=== PATIENT | female | born 1995 | race Caucasian/White ===

== ENCOUNTER 2022-09-23 20:17 | Emergency (ER) | payer BC ==
[2022-09-23] MEDS ORDERED: Ketorolac 60 MG/2 ML SDV IM ONE (21:13)
== END 2022-09-23 23:20 | disposition home or self-care (01) ==
LOC: JD.ED 20:17
DX: S83.91XA Sprain of unspecified site of right knee, initial encounter (principal); W09.8XXA Fall on or from other playground equipment, initial encounter; Y93.44 Activity, trampolining
CPT/HCPCS: 73562; 96372; 99283; J1885

== ENCOUNTER 2022-10-12 14:59 | Emergency (ER) | payer BC ==
[2022-10-12] MEDS ORDERED: Iopamidol 755 Mg/ML 100 ML Bottle IVPUSH ONE (15:34)
[2022-10-12] MEDS ORDERED: Sodium Chloride 0.9% 10 ML Syringe FLUSH ONE (15:34)
[2022-10-12 15:38] LABS: BASOPHILS ABSOLUTE AUTO 0.01 K/mm3 (0.01-0.08); BASOPHILS PERCENT AUTO 0.2 % (0.1-1.2); EOSINOPHILS ABSOLUTE AUTO 0.03 K/mm3 (0.04-0.36); EOSINOPHILS PERCENT AUTO 0.5 (0.7-5.8); HEMATOCRIT 32.7 % (34.1-44.9); HEMOGLOBIN 10.5 gm/dl (11.2-15.7); IMMATURE GRAN ABSOLUTE AUTO 0.01 K/mm3 (0.00-0.10); IMMATURE GRAN PERCENT AUTO 0.2 % (<=1.0); LYMPHOCYTES ABSOLUTE AUTO 1.74 K/mm3 (1.18-3.74); MEAN CORPUSCULAR HEMOGLOBIN 19.4 pg (25.6-32.2); MEAN CORPUSCULAR HGB CONC 32.1 g/dl (32.2-35.5); MEAN CORPUSCULAR VOLUME 60.3 fl (79.4-94.8); MONOCYTES ABSOLUTE AUTO 0.45 K/mm3 (0.24-0.36); NEUTROPHILS ABSOLUTE AUTO 3.38 K/mm3 (1.56-6.13); NEUTROPHILS PERCENT AUTO 60.1 % (34.0-71.1); PLATELET COUNT,PLT 282 K/mm3 (182-369); RED BLOOD CELL COUNT 5.42 M/mm3 (3.98-5.22); WHITE BLOOD CELL COUNT,WBC 5.62 K/mm3 (3.98-10.04)
[2022-10-12] MEDS ORDERED: Sodium Chloride 0.9% 100 ML IV SCH (15:45)
[2022-10-12 15:57] LABS: D-DIMER QUANTITATIVE 0.36 mg/L (0.19-0.50); INR 1.07; PROTHROMBIN TIME 11.4 SECONDS (9.7-12.0)
[2022-10-12 15:58] LABS: PTT,PARTIAL THROMBOPLSTIN TIME 27.9 SECONDS (21.7-31.4)
[2022-10-12 16:08] LABS: A/G RATIO 1.2 (1-2); ALANINE AMINOTRANSFERASE,ALT 18 U/L (14-59); ALBUMIN 3.9 g/dl (3.4-5.0); ALKALINE PHOSPHATASE 53 U/L (46-116); ANION GAP 9.8 (5-15); ASPARTATE AMNIOTRANSFERASE,AST 14 U/L (15-37); BILIRUBIN TOTAL 0.4 mg/dL (0.2-1.0); BLOOD UREA NITROGEN,BUN 9 mg/dL (7-18); CALCIUM 8.2 mg/dL (8.5-10.1); CARBON DIOXIDE,CO2 28 mEq/L (21-32); CHLORIDE,CL 100 mEq/L (98-107); CREATININE 0.9 mg/dL (0.55-1.02); EST CRCL DRUG DOSING (CG) 86.34 mL/min; ESTIMATED GFR 89 mL/min (>60); GLUCOSE RANDOM 92 mg/dL (70-99); POTASSIUM,K 3.8 mEq/L (3.5-5.1); PROTEIN TOTAL,TP 7.3 g/dl (6.4-8.2); SODIUM,NA 134 mEq/L (136-145); TROPONIN I HIGH SENSITIVITY 5 pg/mL (<=51)
[2022-10-12 16:14] LABS: HCG QUANTITATIVE < 1.0 mIU/mL
[2022-10-12 16:18] LABS: SLIDE REVIEW ABNORMAL SMEAR
[2022-10-12] MEDS ORDERED: cefTRIAXone 2 GM in Sodium Chloride 0.9% 100 ML IV ONE (18:09)
== END 2022-10-12 18:22 | disposition home or self-care (01) ==
LOC: JD.ED 14:59
DX: G45.9 Transient cerebral ischemic attack, unspecified (principal); F17.210 Nicotine dependence, cigarettes, uncomplicated
CPT/HCPCS: 36415; 70450; 70496; 70498; 70551; 80053; 82947; 84484; 84702; 85025; 85379; 85610; 85730; 93005; 99285; J3490; Q9967; 93010

== ENCOUNTER 2023-09-08 14:49 | Emergency (ER) | payer MEDICARE, BC ==
[2023-09-08] MEDS: Ondansetron 4 MG/2 ML SDV IVPUSH ONE (14:55)
[2023-09-08] MEDS: Iopamidol 755 Mg/ML 100 ML Bottle IVPUSH ONE (15:05)
[2023-09-08] MEDS: Sodium Chloride 0.9% 10 ML Syringe FLUSH PRN (15:05)
[2023-09-08] MEDS: Sodium Chloride 0.9% 100 ML IV SCH (15:06)
[2023-09-08 15:52] LABS: BASOPHILS PERCENT AUTO 0.2 % (0.0-1.0); EOSINOPHILS PERCENT AUTO 0.9 % (0.0-6.0); HEMATOCRIT 31.2 % (37.0-47.0); HEMOGLOBIN 9.6 gm/dl (12.0-16.0); IMMATURE GRAN ABSOLUTE AUTO 0.01 K/mm3 (0.00-0.05); IMMATURE GRAN PERCENT AUTO 0.2 % (0.0-0.4); LYMPHOCYTES ABSOLUTE AUTO 1.2 K/mm3 (1.0-4.8); LYMPHOCYTES PERCENT AUTO 27.4 % (24.0-44.0); MEAN CORPUSCULAR HEMOGLOBIN 19.2 pg (28.0-32.0); MEAN CORPUSCULAR HGB CONC 30.8 g/dl (32.0-36.0); MEAN CORPUSCULAR VOLUME 62.4 fl (83.0-99.0); MONOCYTES ABSOLUTE AUTO 0.3 K/mm3 (0.0-0.8); MONOCYTES PERCENT AUTO 7.5 % (0.0-8.0); NEUTROPHILS ABSOLUTE AUTO 2.8 K/mm3 (1.8-7.7); NEUTROPHILS PERCENT AUTO 63.8 % (41.0-71.0); PLATELET COUNT,PLT 218 K/mm3 (150-400); WHITE BLOOD CELL COUNT,WBC 4.42 K/mm3 (3.9-11.3)
[2023-09-08 16:15] LABS: A/G RATIO 1.2 (1-2); ALANINE AMINOTRANSFERASE,ALT 10 U/L (14-59); ALBUMIN 3.5 g/dl (3.4-5.0); ALKALINE PHOSPHATASE 52 U/L (46-116); ANION GAP 9.8 (5-15); ASPARTATE AMNIOTRANSFERASE,AST 9 U/L (15-37); BILIRUBIN TOTAL 0.3 mg/dL (0.2-1.0); BLOOD UREA NITROGEN,BUN 10 mg/dL (7-18); BUN/CREATININE RATIO 12.5 (14-18); CARBON DIOXIDE,CO2 29 mEq/L (21-32); CHLORIDE,CL 100 mEq/L (98-107); CREATININE 0.8 mg/dL (0.55-1.02); ESTIMATED GFR 102 mL/min (>60); GLUCOSE RANDOM 75 mg/dL (70-99); MAGNESIUM 1.6 mg/dL (1.8-2.4); POTASSIUM,K 3.8 mEq/L (3.5-5.1); PROTEIN TOTAL,TP 6.4 g/dl (6.4-8.2); SODIUM,NA 135 mEq/L (136-145); TROPONIN I HIGH SENSITIVITY 5 pg/mL (<=51)
[2023-09-08 16:53] LABS: APPEARANCE,URINE CLEAR (Clear); BILIRUBIN,URINE NEGATIVE (Negative); COLOR,URINE YELLOW (Yellow); GLUCOSE,URINE NEGATIVE (Negative); KETONES,URINE NEGATIVE (Negative); LEUKOCYTE ESTERASE,URINE NEGATIVE (Negative); NITRITE,URINE NEGATIVE (Negative); OCCULT BLOOD,URINE NEGATIVE (Negative); PH,URINE 7.5 (5.0-8.0); PROTEIN,URINE NEGATIVE (Negative); UROBILINOGEN,URINE 0.2 (0.2-1.0)
[2023-09-08] MEDS: Prochlorperazine 10 MG/2 ML SDV IVPUSH ONE (17:16)
[2023-09-08] MEDS: Ketorolac 30 MG/ML SDV IVPUSH ONE (17:17)
[2023-09-08 17:29] LABS: AMPHETAMINES SCREEN, URINE NEGATIVE (CUTOFF=500); BARBITURATE SCREEN,URINE NEGATIVE (CUTOFF=200); BENZODIAZEPINES SCREEN,URINE NEGATIVE (CUTOFF=150); BUPRENORPHINE SCREEN,URINE NEGATIVE (CUTOFF=10); METHADONE SCREEN, URINE NEGATIVE (CUTOFF=200); METHAMPHETAMINES SCREEN, URINE NEGATIVE (CUTOFF=500); OXYCODONE SCREEN,URINE NEGATIVE (CUT0FF=100); THC SCREEN,URINE 20 NG/ML NEGATIVE (CUTOFF=50)
[2023-09-08] MEDS: Ondansetron 4 MG/2 ML SDV ONE (17:50)
[2023-09-08] MEDS: Magnesium Oxide 400 MG Tab PO ONE (17:54)
[2023-09-08] MEDS ORDERED: Naloxone 0.4 MG/ML SDV IVPUSH PRN (17:56)
[2023-09-08] MEDS: HYDROmorphone 1 MG/ML Syringe IVPUSH ONE (18:00)
[2023-09-08] MEDS: levETIRAcetam 500 MG Tab PO ONE (18:37)
== END 2023-09-08 18:50 | disposition home or self-care (01) ==
LOC: JD.ED 14:49
DX: R56.9 Unspecified convulsions (principal); R47.01 Aphasia; Z86.73 Personal history of transient ischemic attack (TIA), and cerebral infarction without residual deficits; Z79.899 Other long term (current) drug therapy
CPT/HCPCS: 36415; 70450; 70496; 70498; 80053; 80306; 80307; 81003; 83735; 84484; 85025; 96374; 96375; 99285; A9270; J0780; J1170; J1885; J2405; J3490; Q9967; 93010; 99284